=== PATIENT | male | born 1955 | race Caucasian/White ===

== ENCOUNTER 2018-06-30 08:53 | Outpatient (CLI) | payer BC, SELFPAY ==
[2018-06-30 09:19] LABS: Abs Immature Grans 0.01 k/cumm (0.0-0.09); Absolute Basophil Count 0.07 k/cumm (0.0-0.2); Absolute Eosinophil Count 0.11 k/cumm (0.0-0.7); Absolute Lymphocyte Count 1.55 k/cumm (1.2-3.4); Absolute Neutrophil Count 3.83 k/cumm (1.2-6.7); Basophils % 1.1; Eosinophils % 1.7; HCT 45.7 % (40.0-50.0); HGB 15.4 g/dL (13.5-17.5); Immature Grans % 0.2; Lymphocytes % 24.3; Mean Corp. HGB Concentration 33.7 g/dL (32.0-36.0); Mean Corpuscular Hemoglobin 32.4 pg (27.0-33.0); Mean Corpuscular Volume 96.2 fL (80-95); Mean Platelet Volume 10.9 fL (8.0-11.0); Monocytes % 12.6; Neutrophils % 60.1; Platelet Count 198 x1000/uL (130-400); RBC 4.75 m/cumm (4.50-6.00); RBC Distribution Width 14.9 % (11.8-14.1); White Blood Cell Count 6.37 k/cumm (4.4-10.8)
[2018-06-30 10:38] LABS: Anion Gap 7.3 mmol/L (3-11); BUN 15 mg/dL (7-18); CO2 28.7 mmol/L (21.0-32.0); CREATININE 1.06 mg/dL (0.70-1.30); Chloride 106 mmol/L (98-107); Cholesterol 150 mg/dL (50-200); Glucose 87 mg/dL (70-100); HDL Cholesterol 62 mg/dL (40-60); LDL CHOLESTEROL 81 mg/dL (<100); Potassium 4.7 mmol/L (3.5-5.1); Sodium 142 mmol/L (136-145); Triglyceride 41 mg/dL (30-150)
== END 2018-06-30 09:13 ==
PROVIDERS: PCP Nurse Practitioner Family; Visit Provider Nurse Practitioner Family
DX: E78.5 Hyperlipidemia, unspecified (principal); D50.9 Iron deficiency anemia, unspecified; N28.9 Disorder of kidney and ureter, unspecified
CPT/HCPCS: 36415; 80048; 80061; 83721; 85025

== ENCOUNTER 2018-10-02 00:16 | Outpatient (CLI) | payer OTHER, SELFPAY ==
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
== END 2018-10-02 00:36 ==
PROVIDERS: PCP Nurse Practitioner Family; Visit Provider Nurse Practitioner Family
DX: S22.20XD Unspecified fracture of sternum, subsequent encounter for fracture with routine healing (principal); J18.9 Pneumonia, unspecified organism
CPT/HCPCS: 71046

== ENCOUNTER 2018-10-19 11:56 | Outpatient (CLI) | payer BC, SELFPAY ==
--- NOTE | 2018-10-19 11:54 | DI.RAD_ITS ---
SYMPTOMS/DIAGNOSIS: F/U FX STERNUM: Two views were obtained. Comparison is 10/02/18. There has been no significant change in alignment of the fracture involving the proximal sternum.
== END 2018-10-19 12:16 ==
PROVIDERS: PCP Nurse Practitioner Family; Visit Provider Orthopaedic Surgery
DX: S22.20XD Unspecified fracture of sternum, subsequent encounter for fracture with routine healing (principal)
CPT/HCPCS: 71120

== ENCOUNTER 2020-05-29 07:10 | Outpatient (CLI) | payer BC, SELFPAY ==
[2020-05-29 08:11] LABS: Anion Gap 8.7 mmol/L (3-11); BUN 21 mg/dL (7-18); CO2 26.3 mmol/L (21.0-32.0); CREATININE 1.07 mg/dL (0.70-1.30); Calculated LDL 81 mg/dL (<100); Chloride 108 mmol/L (98-107); Cholesterol 157 mg/dL (<200); Glucose 87 mg/dL (74-106); HDL Cholesterol 66 mg/dL (40-60); Potassium 4.6 mmol/L (3.5-5.1); Sodium 143 mmol/L (136-145); Triglyceride 52 mg/dL (<150)
[2020-05-30 10:59] LABS: Lyme Ab w Rflx to Lyme Confirm Negative (Negative)
== END 2020-05-29 07:30 ==
PROVIDERS: PCP Nurse Practitioner Family; Visit Provider Nurse Practitioner Family
DX: Z13.1 Encounter for screening for diabetes mellitus (principal); W57.XXXA Bitten or stung by nonvenomous insect and other nonvenomous arthropods, initial encounter; S70.361A Insect bite (nonvenomous), right thigh, initial encounter
CPT/HCPCS: 36415; 80048; 80061; 86618

== ENCOUNTER 2021-07-24 01:51 | Outpatient (CLI) | payer MEDICARE, BC, SELFPAY ==
[2021-07-24 10:58] LABS: ALT 33 U/L (16-63); AST 29 U/L (15-37); Albumin 3.7 g/dL (3.4-5.0); Alkaline Phosphatase 95 U/L (46-116); Anion Gap 5.8 mmol/L (3-11); BUN 19 mg/dL (7-18); Bilirubin, Total 0.7 mg/dL (0.2-1.0); CO2 28.2 mmol/L (21.0-32.0); CREATININE 0.9 mg/dL (0.70-1.30); Calculated LDL 80 mg/dL (<100); Chloride 108 mmol/L (98-107); Cholesterol 159 mg/dL (<200); Glucose 89 mg/dL (74-106); HDL Cholesterol 69 mg/dL (40-60); Potassium 4.7 mmol/L (3.5-5.1); Sodium 142 mmol/L (136-145); Total Protein 6.7 g/dL (6.4-8.2); Triglyceride 51 mg/dL (<150)
== END 2021-07-24 01:52 | disposition home or self-care (01) ==
LOC: LBO 01:55
PROVIDERS: PCP Nurse Practitioner Family; Visit Provider Nurse Practitioner Family
DX: E78.5 Hyperlipidemia, unspecified (principal); Z13.1 Encounter for screening for diabetes mellitus
CPT/HCPCS: 36415; 80053; 80061

== ENCOUNTER 2022-08-11 03:28 | Outpatient (CLI) | payer MEDICARE, SELFPAY ==
[2022-08-11 09:09] LABS: Abs Immature Grans 0.02 10^3/uL (0.0-0.06); Absolute Basophil Count 0.09 10^3/uL (0.0-0.2); Absolute Eosinophil Count 0.18 10^3/uL (0.0-0.7); Absolute Lymphocyte Count 1.72 10^3/uL (1.2-3.4); Absolute Monocyte Count 0.98 10^3/uL (0.1-0.8); Absolute Neutrophil Count 4.48 10^3/uL (1.2-6.7); Basophils % 1.2; Eosinophils % 2.4; HCT 39.7 % (40.0-50.0); HGB 12.7 g/dL (13.5-17.5); Immature Grans % 0.3; MCH 28.2 pg (27.0-33.0); MCV 88 fL (80-95); MPV 9.9 fL (8.0-11.0); Monocytes % 13.1; Platelet Count 315 10^3/uL (130-400); RBC 4.51 10^6/uL (4.36-5.78); RDW 15.3 % (11.8-14.1); RDW-SD 49.9 fL; WBC 7.47 10^3/uL (4.4-10.8)
[2022-08-11 11:20] LABS: Anion Gap 7.5 mmol/L (3-11); BUN 24 mg/dL (7-18); CO2 26.5 mmol/L (21.0-32.0); Calcium 8.7 mg/dL (8.5-10.1); Calculated LDL 147 mg/dL (<100); Chloride 106 mmol/L (98-107); Cholesterol 221 mg/dL (<200); Estimated GFR 81.98 (mL/min/1.73m2); Glucose 87 mg/dL (74-106); HDL Cholesterol 60 mg/dL (40-60); Potassium 4.3 mmol/L (3.5-5.1); Sodium 140 mmol/L (136-145); Triglyceride 71 mg/dL (<150)
[2022-08-12 16:39] LABS: Ferritin 20 ng/mL (26-388); Folate 4.5 ng/mL (8.6-20.0); Vitamin B12 291 pg/mL (193-986)
== END 2022-08-11 03:29 | disposition home or self-care (01) ==
LOC: LBO 03:28
PROVIDERS: PCP Nurse Practitioner Family; Referring Provider Nurse Practitioner Family; Visit Provider Nurse Practitioner Family
DX: E78.5 Hyperlipidemia, unspecified (principal); Z13.1 Encounter for screening for diabetes mellitus; Z86.2 Personal history of diseases of the blood and blood-forming organs and certain disorders involving the immune mechanism
CPT/HCPCS: 36415; 80048; 80061; 82607; 82728; 82746; 85025

== ENCOUNTER 2022-10-13 02:30 | Outpatient (CLI) | payer MEDICARE, SELFPAY ==
[2022-10-13 09:11] LABS: Abs Immature Grans 0.04 10^3/uL (0.0-0.06); Absolute Basophil Count 0.04 10^3/uL (0.0-0.2); Absolute Eosinophil Count 0.18 10^3/uL (0.0-0.7); Absolute Lymphocyte Count 2.08 10^3/uL (1.2-3.4); Absolute Monocyte Count 1.01 10^3/uL (0.1-0.8); Absolute Neutrophil Count 4.84 10^3/uL (1.2-6.7); Basophils % 0.5; Eosinophils % 2.2; HGB 15.2 g/dL (13.5-17.5); Immature Grans % 0.5; Lymphocytes % 25.4; MCH 30.2 pg (27.0-33.0); MCV 92 fL (80-95); MPV 9.8 fL (8.0-11.0); Monocytes % 12.3; Neutrophils % 59.1; Platelet Count 316 10^3/uL (130-400); RBC 5.03 10^6/uL (4.36-5.78); RDW 17.1 % (11.8-14.1); RDW-SD 57.4 fL; WBC 8.19 10^3/uL (4.4-10.8)
[2022-10-13 10:30] LABS: Folate > 20.0 ng/mL (8.6-20.0)
[2022-10-13 10:34] LABS: Vitamin D 25 Total 26.2 ng/mL (30-100)
[2022-10-13 10:39] LABS: Ferritin 94 ng/mL (26-388); Vitamin B12 494 pg/mL (193-986)
== END 2022-10-13 02:31 | disposition home or self-care (01) ==
LOC: LBO 02:30
PROVIDERS: PCP Nurse Practitioner Family; Visit Provider Nurse Practitioner Family
DX: D64.9 Anemia, unspecified (principal); E55.9 Vitamin D deficiency, unspecified; E78.5 Hyperlipidemia, unspecified; Z79.899 Other long term (current) drug therapy
CPT/HCPCS: 36415; 82306; 82607; 82728; 82746; 85025

== ENCOUNTER → 2022-11-15 10:21 | Outpatient (BNVA) | payer MEDICARE, SELFPAY | PROVIDERS: PCP Nurse Practitioner Family; Referring Provider Nurse Practitioner Family; Visit Provider Student in an Organized Health Care Education/Training Program | DX: M70.42 Prepatellar bursitis, left knee (principal) | CPT/HCPCS: 20610; 99202 ==

== ENCOUNTER 2023-03-18 12:18 | Outpatient (CLI) | payer MEDICARE, SELFPAY ==
--- NOTE | 2023-03-18 12:00 | DI.RAD_ITS ---
Exam(s) XR CHEST 2V PA LATERAL EXAM: XR CHEST 2V PA LATERAL CLINICAL HISTORY: r/o PNA or other acute abnormality R50.9 FEVER R05.9 COUGH W57.XXXA TICK TECHNIQUE: 2D digital imaging was performed. COMPARISON: CR XR CHEST 2V PA LATERAL from 10/02/2018 CR XR sternum from 10/19/2018 FINDINGS: HEART: Normal size. Aorta: Not dilated. PULMONARY VASCULATURE: Normal. LUNGS: Clear. PLEURAL SPACE: No pleural effusion or pneumothorax. BONE:Unremarkable for age. IMPRESSION: No acute abnormality. DATA REPOSITORY: RADIATION DOSE DELIVERED:
== END 2023-03-18 12:38 ==
LOC: DI 06-14 12:19
PROVIDERS: PCP Nurse Practitioner Family; Visit Provider Nurse Practitioner Family
DX: R05.9 Cough, unspecified (principal); R50.9 Fever, unspecified; W57.XXXA Bitten or stung by nonvenomous insect and other nonvenomous arthropods, initial encounter
CPT/HCPCS: 71046

== ENCOUNTER 2023-03-18 12:30 | Outpatient (CLI) | payer MEDICARE, SELFPAY ==
[2023-03-18 12:37] LABS: Abs Immature Grans 0.13 10^3/uL (0.0-0.06); Absolute Basophil Count 0.04 10^3/uL (0.0-0.2); Absolute Lymphocyte Count 1.36 10^3/uL (1.2-3.4); Absolute Monocyte Count 1.43 10^3/uL (0.1-0.8); Absolute Neutrophil Count 7.93 10^3/uL (1.2-6.7); Basophils % 0.4; HCT 37.1 % (40.0-50.0); HGB 12.8 g/dL (13.5-17.5); Immature Grans % 1.2; Lymphocytes % 12.5; MCH 31.7 pg (27.0-33.0); MCHC 34.5 % (32.0-36.0); MCV 92 fL (80-95); MPV 10.4 fL (8.0-11.0); Monocytes % 13.1; Neutrophils % 72.8; Platelet Count 303 10^3/uL (130-400); RBC 4.04 10^6/uL (4.36-5.78); RDW 13.5 % (11.8-14.1); RDW-SD 45.8 fL; WBC 10.89 10^3/uL (4.4-10.8)
[2023-03-18 13:05] LABS: ALT 68 U/L (16-63); AST 58 U/L (15-37); Albumin 2.9 g/dL (3.4-5.0); Alkaline Phosphatase 189 U/L (46-116); Anion Gap 8.5 mmol/L (3-11); BUN 18 mg/dL (7-18); Bilirubin, Total 0.8 mg/dL (0.2-1.0); CO2 24.5 mmol/L (21.0-32.0); CREATININE 1.3 mg/dL (0.70-1.30); Calcium 8.6 mg/dL (8.5-10.1); Chloride 100 mmol/L (98-107); Estimated GFR 59.47 (mL/min/1.73m2); Glucose 139 mg/dL (74-106); Potassium 4.5 mmol/L (3.5-5.1); Sodium 133 mmol/L (136-145); Total Protein 7.4 g/dL (6.4-8.2)
[2023-03-21 10:09] LABS: Lyme Ab w Rflx to Lyme Confirm Negative (Negative)
[2023-03-21 22:11] LABS: B. miyamotoi PCR Negative (Negative); Babesia divergens/MO-1 Negative (Negative); Babesia duncani Negative (Negative); Babesia microti Negative (Negative); Ehrlichia chaffeensis Negative (Negative); Ehrlichia ewingii/canis Negative (Negative); Ehrlichia muris eauclairensis Negative (Negative)
[2023-03-22 09:06] LABS: Anaplasma phagocytophilum Positive (Negative)
== END 2023-03-18 12:31 | disposition home or self-care (01) ==
LOC: LBO 06-14 12:30
PROVIDERS: PCP Nurse Practitioner Family; Visit Provider Nurse Practitioner Family
DX: R05.9 Cough, unspecified (principal); R50.9 Fever, unspecified; W57.XXXA Bitten or stung by nonvenomous insect and other nonvenomous arthropods, initial encounter; A79.82 Anaplasmosis [A. phagocytophilum]
CPT/HCPCS: 36415; 80053; 87798; 85025; 86618

== ENCOUNTER 2023-08-10 03:38 | Outpatient (CLI) | payer MEDICARE, SELFPAY ==
[2023-08-10 12:18] LABS: Abs Immature Grans 0.02 10^3/uL (0.0-0.06); Absolute Eosinophil Count 0.21 10^3/uL (0.0-0.7); Absolute Lymphocyte Count 1.85 10^3/uL (1.2-3.4); Absolute Monocyte Count 1.07 10^3/uL (0.1-0.8); Absolute Neutrophil Count 4.47 10^3/uL (1.2-6.7); Basophils % 1.3; Eosinophils % 2.7; HCT 37.6 % (40.0-50.0); HGB 11.9 g/dL (13.5-17.5); Immature Grans % 0.3; MCH 28.1 pg (27.0-33.0); MCHC 31.6 % (32.0-36.0); MCV 89 fL (80-95); MPV 10.8 fL (8.0-11.0); Monocytes % 13.9; Neutrophils % 57.8; Platelet Count 346 10^3/uL (130-400); RBC 4.24 10^6/uL (4.36-5.78); RDW 14.8 % (11.8-14.1); RDW-SD 48.3 fL; WBC 7.72 10^3/uL (4.4-10.8)
[2023-08-10 13:01] LABS: Iron 30 ug/dL (65-175); Total Iron Binding Capacity 334 ug/dL (250-450); Transferrin Sat 9 % (20-55)
[2023-08-10 13:17] LABS: Vitamin D 25 Total 28.3 ng/mL (30-100)
[2023-08-10 13:20] LABS: Calculated LDL 95 mg/dL (<100); Cholesterol 168 mg/dL (<200); Ferritin 15 ng/mL (26-388); Folate 5.9 ng/mL (8.6-20.0); HDL Cholesterol 63 mg/dL (40-60); Triglyceride 52 mg/dL (<150); Vitamin B12 260 pg/mL (193-986)
== END 2023-08-10 03:39 | disposition home or self-care (01) ==
LOC: LOS 03:38
PROVIDERS: PCP Nurse Practitioner Family; Visit Provider Nurse Practitioner Family
DX: E55.9 Vitamin D deficiency, unspecified (principal); D64.9 Anemia, unspecified; E78.5 Hyperlipidemia, unspecified
CPT/HCPCS: 36415; 80061; 82306; 82607; 82728; 82746; 83540; 83550; 85025

== ENCOUNTER 2023-12-05 15:45 | Outpatient (CLI) | payer MEDICARE, SELFPAY ==
--- NOTE | 2023-12-05 10:00 | DI.RAD_ITS ---
Exam(s) XR KNEE RT 3V AP,LAT,ANABELLE EXAM: XR KNEE RT 3V AP,LAT,ANABELLE CLINICAL HISTORY: eval R knee pain/OA. TECHNIQUE: 2D digital imaging was performed of the right knee. Three views obtained. AP, lateral an d PA tunnel views were obtained. COMPARISON: CR RIGHT KNEE LIMITED 1 OR 2 VIEW from 10/22/2015 FINDINGS: BONES: No acute fracture is present. No bony destructive lesion is seen. JOINTS: There is marked narrowing of the medial femoral tibial joint. Osteophytes are seen in the me dial femoral tibial patellofemoral joint. There is a small joint effusion. SOFT TISSUE: Normal. IMPRESSION: Marked degenerative changes of the right knee. DATA REPOSITORY: RADIATION DOSE DELIVERED:
--- NOTE | 2023-12-05 10:00 | DI.RAD_ITS ---
Exam(s) XR HIP RT COMPLETE AP PELVIS EXAM: XR HIP RT COMPLETE AP PELVIS CLINICAL HISTORY: eval anteromedial right thigh/knee pain. TECHNIQUE: 2D digital imaging was performed of the right hip. Two images were obtained. AP pelvis a nd lateral right hip views were obtained. COMPARISON: No exams were available for comparison FINDINGS: BONES: No acute fracture is present. No bony destructive lesion is seen. JOINTS: No dislocation present. There is narrowing of the joint spaces bilaterally. Acetabular osteo phytes are also seen bilaterally. The visualized sacroiliac joints are unremarkable as is the symphy sis pubis. SOFT TISSUE: Surgical clips are seen inferior to the pelvis likely reflecting prior vasectomy. IMPRESSION: Mild degenerative changes of the hips bilaterally. DATA REPOSITORY: RADIATION DOSE DELIVERED:
== END 2023-12-05 15:46 | disposition home or self-care (01) ==
LOC: DIORS 15:45
PROVIDERS: PCP Nurse Practitioner; Referring Provider Nurse Practitioner
DX: M17.11 Unilateral primary osteoarthritis, right knee; M25.851 Other specified joint disorders, right hip; M25.852 Other specified joint disorders, left hip
CPT/HCPCS: 73562; 99215; 73502

== ENCOUNTER → 2024-01-03 08:38 | Outpatient (BNVA) | payer MEDICARE, SELFPAY | PROVIDERS: PCP Nurse Practitioner; Referring Provider Nurse Practitioner; Visit Provider Student in an Organized Health Care Education/Training Program | DX: M17.11 Unilateral primary osteoarthritis, right knee (principal) | CPT/HCPCS: 99214 ==

== ENCOUNTER 2024-07-03 10:21 | Outpatient (CLI) | payer MEDICARE, SELFPAY ==
--- NOTE | 2024-07-03 09:00 | DI.RAD_ITS ---
Exam(s) XR STANDING ALIGNMENT EXAM: XR STANDING ALIGNMENT CLINICAL HISTORY: PRE OP RIGHT UKA. TECHNIQUE: 2D digital imaging was performed. Standing AP views were performed from the pelvis throu gh the ankles. COMPARISON: CR XR KNEE RT 3V AP,LAT,ANABELLE from 12/05/2023 FINDINGS: BONES: No acute fracture is present. No bony destructive lesion is seen. Leg length discrepancy: JOINTS: Knees: Severe narrowing of the medial femoral tibial joint space of the right knee, with a rosy ne-on-bone appearance. This causes varus angulation. The left knee joint spaces are maintained. Ankles: Right ankle joint space is maintained. Mild narrowing of the medial tibiotalar joint on the left. The hip joints show mild degenerative changes.. SOFT TISSUE: Normal. IMPRESSION: Severe degenerative changes of the medial femoral tibial joint of the right knee. No significant leg length discrepancy. DATA REPOSITORY: RADIATION DOSE DELIVERED:
== END 2024-07-03 10:22 | disposition home or self-care (01) ==
LOC: DIORS 10:22
PROVIDERS: PCP Nurse Practitioner; Referring Provider Nurse Practitioner; Visit Provider Student in an Organized Health Care Education/Training Program
DX: M17.11 Unilateral primary osteoarthritis, right knee (principal)
CPT/HCPCS: 99214; 77073

== ENCOUNTER 2024-07-27 07:24 | Day surgery (SDC) | payer MEDICARE, SELFPAY ==
[2024-07-27] VITALS (23 sets, daily range): BP systolic 101–139; BP diastolic 47–74; PULSE 46–68; RESP 14–21; TEMP 36.1–37; O2SAT 92–98; BMI 25.9
--- NOTE | 2024-07-27 07:16 | ROE_ITS ---
Date of service: 07/27/24 Time of Service: 11:00 Operative Note Operative Note DATE OF PROCEDURE: 07/27/24 PRE-OP DIAGNOSIS: Right knee medial compartmental arthritis POST-OP DIAGNOSIS: same PROCEDURE: Right knee medial unicompartmental arthroplasty, CPT # 64133 The portfolio assistant was medically required as this procedure involves retraction, protection of neurovascular structures, and manipulation of multiple instruments and implants at the same time, which cannot be done without a skilled portfolio assistant. SURGEON: Carlos Soni [employer] SUPERVISOR: Renetta Colón ANESTHESIA TYPE: Local By Surgeon, General LMA/ETT and Primary Nerve Block Refer to Anesthesia Record ESTIMATED BLOOD LOSS: 200 TOURNIQUET TIME: 0 COMPLICATIONS: None Patient was transported to: PACU Patient's condition: stable Implants: DePuy Sigma HP partial knee size 3 metal-backed tibial tray, 8 mm tibial insert fixed bearing, size 4 femoral component Indications: Please see complete medical record for details. Findings: Isolated medial compartment arthritis Procedure Description: The patient was taken to the operating room and transferred to the operating room table. [Spinal] anesthesia was induced. All bony prominences were well- padded. Preoperative antibiotics and 1 g TXA were administered. A tourniquet was placed loosely over padding high on the patient's thigh. The knee and lower extremity were prepped and draped in the usual sterile fashion. The correct patient, procedure, and side of the procedure were all verified prior to incision. A slightly medial of midline longitudinal approach was used to the knee extending from the superior pole the patella to the distal aspect of the tibial tubercle. The quadriceps tendon, patella borders, and patellar tendon were exposed. A full-thickness arthrotomy was performed starting splitting the quadriceps tendon and leaving a sleeve of tissue on the medial aspect of the patella and taking care to progress along the medial margin the patellar tendon. The MCL was elevated off the proximal medial tibia. The tibial alignment jig was set in place on the anterior medial aspect of the tibia and carefully adjusted to achieve proper alignment in the coronal and sagittal planes. Reciprocating saw was used to create the vertical cut at the medial aspect of the medial tibial eminence taking care to protect the ACL ligament footprint. The transverse cut was then done using the microsagittal saw through the jig taking care to retract and protect the MCL. The bone piece and cut were inspected and found to be appropriate for patient anatomy. A box rasp was used to clean up the cut especially the L component. The 8 mm spacer block had good stability in flexion, but extension gap was 9 mm owing to the bone loss arthritis. The tibial trial spacer block was used to chris the rotational alignment and anterior extent of the femoral component. The spacer block was removed and the tibia was sized with the depth gauge. The distal femoral cutting block was inserted taking care to orient it appropriately. The 1 mm up guide was done to equalize the flexion and extension gaps. The cut was done using the saw through the guide. The posterior cutting block was then applied to the distal cut, ensured to be flush, rotation set, and it was pinned in place. The posterior cut was completed through the guide. The guide was removed, and the femur was sized with the femoral sizing blocks. The appropriate sized cutting jig was selected. Care was taken to ensure the block was flush with the resected distal and posterior femur bone surfaces. A curved gouge was used to cut the profile of the proximal tip of the femoral prosthesis, chris the extent of the anterior chamfer cut, and prevent trochlear cartilage delamination. The anterior cut was done using the osteotomes, the drill was used to drill the 2 peg holes, and the posterior chamfer cut was done through the jig with the saw. This last cutting block and bone cuts were rem ayad. The medial meniscus remnant was removed. The femoral component trial was placed on the distal femur and the 8 mm spacer block confirmed appropriate balancing in flexion, extension, and again about 2 mm of medial joint space opening in about 20 degrees of flexion. Tibial template was inserted and the size confirmed to be appropriate. The keel was used by hand to remove bone from the slot and the tibial peg drill was used in the peg hole. The pulse lavage was used to clean the bone surfaces. SmartSet medium viscosity cement was prepared. At the appropriate time during the early working phase, the cement was applied to the backside of the tibial and femoral components. Then, cement was carefully placed and pressurized into the proximal tibia taking care to only have minimal cement posteriorly. The tibial component was inserted at an angle and then impacted directing pressure from posterior to anterior to keep the flow of cement from posterior to anterior. Cement was then applied to the distal femur and the femoral component impacted. Excess cement was removed. The knee was brought into full extension and this position with axial load was maintained until the cement was completely hardened at 20 minutes. A combination R.E.C.K. (123 mg Ropivacaine, 0.25 mg Epinephrine, 0.04 mg Clonidine, and 15 mg Ketorolac) 50 ml injection was widely infiltrated about the knee. The wound was copiously irrigated with the pulse lavage and Surgiphor. Tibial tray copier operator was removed, and the final tibial insert was inserted and clicked into place. The knee was tested through range of motion found to be stable with equal balancing from full extension to flexion past 90 degrees and a couple millimeters of medial joint space opening in about 20 degrees of flexion. Appropriate hemostasis was achieved. The capsule was approximated using #1 Vicryl in a figure-of-8 interrupted fashion and then closed using Stratafix #1 PDS barbed suture in a running fashion. The superficial layers were irrigated. Subcutaneous tissue was closed using 2-0 Monocryl in a buried interrupted fashion. Skin was closed using 3-0 Monocryl in a buried subcuticular fashion. The skin incision was glued and then covered with a Mepilex Ag dressing. An Jer wrap was applied from the foot up to the thigh. The patient awoke from anesthesia without complication was transferred to the recovery room in stable condition.
--- NOTE | 2024-07-27 07:19 | W.PM.DSUDISC ---
Date of service: 07/27/24 Time of Service: 13:00 Discharge Plan Disposition Patient Disposition: Home Condition: Stable Discharge Details Attending Provider: Carlos Soni Primary Care Provider: Carlie Martinez Home Meds and New Rx's Prescriptions: New naproxen 250 mg tablet 250 mg PO BID PRNQty: 40 0RF Rx Instructions: take with a meal aspirin 81 mg tablet,delayed release (DR/EC) 81 mg PO BID 30 Days Qty: 60 0RF tramadol 50 mg tablet 50 mg PO Q8H PRN (Reason: severe pain) Qty: 9 0RF Continued cyanocobalamin (vitamin B-12) 1,000 mcg tablet 1,000 mcg PO DAILY Qty: 90 3RF cholecalciferol (vitamin D3) 25 mcg (1,000 unit) capsule 1,000 unit PO DAILY iron bis glycinat-vit C-FA-B12 28 mg iron-60mg -400 mcg-8 mcg capsule 1 cap PO DAILY pravastatin 20 mg tablet 20 mg PO QHS Qty: 90 3RF naproxen sodium [Aleve] 220 MG tablet 440 mg PO DAILY PRN Patient Comments: pt has not taken in a while 05/06/17 Rx Instructions: 05/21/15 pt takes b/c of R leg pain, RH Discharge Instructions Additional Instructions: Surgery: Right medial unicondylar knee replacement Activity: Weightbearing as tolerated. Recommend elevation to minimize swelling and discomfort. Walk as comfort allows. May use crutches or walker as needed for a few weeks. It is important to restore full knee extension as soon as possible. Gently increase knee flexion over the next few weeks. Do not rest with pillows behind knee to prevent knee from getting stuck bent. Encourage ankle pumps and wiggling toes to increase circulation. A physical therapy prescription will be sent electronically to begin in 2-3 weeks. Prescriptions: Aspirin 81 mg take 1 twice a day to prevent a blood clot 30 days, starting tomorrow Naproxen 250 mg take 1-2 every 12 hours with a meal as needed for moderate pain Tramadol 50 mg take 1 every 8 hours as needed for severe pain You may use [id number] Tylenol (acetaminophen) as needed for mild pain. These pain medications may be taken all at once or in different combinations as needed. Also, recommend Colace (docusate) as a stool softener as surgery and pain medicine cause constipation. You may try [id number]-[id number] diphenhydramine (Benadryl) 25-50 mg nightly as a sleep aid Dressings: Leave Band-Aid in place until follow-up. Keep clean and dry at all times. May remove Jer wrap tomorrow. May re-wrap with Jer wrap to help control swelling as needed. Follow-up: 10-[address] Soni You may take off the leg compression Jer wrap and stockings tomorrow at home. You may also leave them on a few days longer if you have a history of leg swelling or edema. Let us know right away if you develop any redness, drainage, fevers, chest pain, or trouble breathing. Do not drink alcohol or drive for at least 24 hours after anesthesia. Please call the office during business hours with any questions or concerns. Discharge Orders Discharge Orders: Discharge Order (Routine); Ordered 07/27/24 Ordered By: Renetta Colón DS: Diagnosis Discharge Diagnosis (1) Arthritis of right knee: Status: Acute
[2024-07-27] MEDS: Lactated Ringers 1,000 ML 30 ML IV (08:20)
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
[2024-07-27] MEDS: Gabapentin 300 MG CAP PO (08:30)
[2024-07-27] MEDS: Acetaminophen 500 MG TAB 1000 MG PO (08:31)
[2024-07-27] MEDS: Celecoxib 200 MG CAP 400 MG PO (08:31)
--- NOTE | 2024-07-27 09:52 | W.ANESNERVE ---
Nerve Block Single Injection Procedure Date and Time Date Performed: 07/27/24 Procedure Start: 09:34 Location Where Procedure Performed Procedure Location: Day Surgery Unit Reason Performed: Postoperative Analgesia Requesting Provider: Carlos Soni Timeout Performed Timeout Performed: Yes Monitoring Used ECG, Blood Pressure, SpO2 and See EMR for corresponding vital signs Sterility Sterility: Hand Hygiene, Surgical Cap, Surgical Mask, Sterile Gloves, Sterile Drape/Sheet and Chlorhexidine Sedation Given During Procedure Sedation Given (Indicate Dose Given): No Sedation given Patient Mental Status Patient Mental Status: Awake Nerve Block 1st Nerve Block: Laterality: Right Block Type: Adductor Canal Ultrasound Image Saved?: Yes Needle / Catheter Used: 100mm SonoPlex II Local Anesthetic Bolus (Indicate Dose Given): Lidocaine used for local infiltration of skin, Injected in 3-5ml increments after negative blood aspiration, Bupivacaine 0.25% Dose:: 10 ml and Exparel Dose:: 10 ml Additives (Indicate Dose Given): None Ultrasound: Sterile probe cover and gel used Nerve Stimulator: Supplement to Ultrasound use and No twitch or parasthesia noted < 0.5 mA Paresthesia: None Procedure Tolerated: No Complications and Patient tolerated well Procedure Outcome: Successful Performed By: Marlen Lutz
[2024-07-27] MEDS: ceFAZolin 2 GM/50 ML BAG IVPB (10:34)
[2024-07-27] MEDS: TRANEXAMIC ACID/SOD. CHL. 1,000 MG/100 ML BAG 600 MG IVPB (10:42)
[2024-07-27] MEDS: Bupivacaine 0.25% Pres-Free W/EPI 30 ML VIAL (11:28)
--- NOTE | 2024-07-27 13:30 | DI.RAD_ITS ---
Exam(s) XR KNEE RT 2V AP,LAT EXAM: XR KNEE RT 2V AP,LAT INDICATION: knee arthritis. COMPARISON: No exams were available for comparison TECHNIQUE: 2D digital imaging was performed. Two views. Portable FINDINGS: The medial femoral tibial joint space prosthesis has been placed. The alignment appears satisfactor y. There is residual postsurgical air in the soft tissue. An old proximal fibular fractures again n oted. DATA REPOSITORY: RADIATION DOSE DELIVERED:
[2024-07-27] MEDS: ceFAZolin 1 GM/50 ML BAG IVPB (14:42)
--- NOTE | 2024-07-27 15:11 | W.ANESPOSTOP ---
Postoperative Evaluation Date, Time and Location Date Performed: 07/27/24 Time Performed: 15:11 Patient Location: Day Surgery Unit Vital Signs Most Recent Imported Vital Signs: Most Recent Vital Signs Temp Pulse Resp BP Pulse Ox 36.9 C 60 14 108/57 L 92 07/27/24 14:55 07/27/24 14:55 07/27/24 14:55 07/27/24 14:55 07/27/24 14:55 Pain Score Most Recent Pain Score: Most Recent Pain Score Pain Level 1 07/27/24 14:57 Assessment Mental Status: Awake (Alert & Oriented to Patient Baseline) Airway and Respiratory Function: Patent airway with normal (patient baseline) respiratory exam Cardiovascular Function: Hemodynamically Stable Hydration Status: Adequately Hydrated Nausea & Vomiting: No Nausea or Vomiting Pain: Pain is tolerable per patient Peripheral Nerve Block: Regional nerve block not resolved at time of post operative discharge
== END 2024-07-27 16:22 | disposition home or self-care (01) ==
PROVIDERS: PCP Nurse Practitioner; Visit Provider Student in an Organized Health Care Education/Training Program
PROC: (CPT 27446; principal; 2024-07-27 08:00)
DX: M17.11 Unilateral primary osteoarthritis, right knee; D50.9 Iron deficiency anemia, unspecified; E78.5 Hyperlipidemia, unspecified; E55.9 Vitamin D deficiency, unspecified; G89.18 Other acute postprocedural pain
CPT/HCPCS: 27446; 64447; 76942; 73560; C1776; C9290; J0665; J0690; J1100; J2003; J2405; J2704

== ENCOUNTER 2024-08-07 15:30 | Outpatient (CLI) | payer MEDICARE, SELFPAY ==
--- NOTE | 2024-08-07 09:45 | DI.RAD_ITS ---
Exam(s) XR KNEE RT 2V AP,LAT EXAM: XR KNEE RT 2V AP,LAT CLINICAL HISTORY: F/U RIGHT UKA. TECHNIQUE: 2D digital imaging was performed. Two images were obtained. AP and lateral views were ob tained. COMPARISON: CR XR KNEE RT 2V AP,LAT from 07/27/2024 FINDINGS: BONES: There are stable post operative changes of a partial right knee replacement present. No fract ure or dislocation. JOINTS: The orthopedic hardware is in good position. No evidence of hardware loosening. There are d egenerative changes seen in the knee characterized by joint space narrowing and osteophytes in the la teral femoral tibial patellofemoral joints. There is a small joint effusion. SOFT TISSUE: Normal. IMPRESSION: Stable partial right knee replacement. DATA REPOSITORY: RADIATION DOSE DELIVERED:
== END 2024-08-07 15:31 | disposition home or self-care (01) ==
LOC: DIORS 15:30
PROVIDERS: PCP Nurse Practitioner; Visit Provider Student in an Organized Health Care Education/Training Program
DX: Z47.1 Aftercare following joint replacement surgery (principal); Z96.651 Presence of right artificial knee joint
CPT/HCPCS: 99024; 73560

== ENCOUNTER 2024-09-18 15:26 | Outpatient (CLI) | payer MEDICARE, SELFPAY ==
--- NOTE | 2024-09-18 09:30 | DI.RAD_ITS ---
Exam(s) XR KNEE RT 2V AP,LAT EXAM: XR KNEE RT 2V AP,LAT INDICATION: F/U RIGHT UKA. COMPARISON: CR XR KNEE RT 2V AP,LAT from 08/07/2024 TECHNIQUE: 2D digital imaging was performed. Two views. FINDINGS: Stable alignment of medial femoral tibial joint space prosthesis. No abnormal surrounding bony lucen cies. A joint effusion anterior soft tissue swelling remain present. DATA REPOSITORY: RADIATION DOSE DELIVERED:
== END 2024-09-18 15:27 | disposition home or self-care (01) ==
LOC: DIORS 15:26
PROVIDERS: PCP Nurse Practitioner; Visit Provider Student in an Organized Health Care Education/Training Program
DX: Z47.1 Aftercare following joint replacement surgery (principal); Z96.651 Presence of right artificial knee joint
CPT/HCPCS: 99024; 73560

== ENCOUNTER 2024-11-08 08:42 | Outpatient (CLI) | payer MEDICARE, SELFPAY ==
[2024-11-08 08:56] LABS: Abs Immature Grans 0.02 10^3/uL (0.0-0.06); Absolute Basophil Count 0.07 10^3/uL (0.0-0.2); Absolute Eosinophil Count 0.23 10^3/uL (0.0-0.7); Absolute Monocyte Count 0.92 10^3/uL (0.1-0.8); Absolute Neutrophil Count 3.53 10^3/uL (1.2-6.7); Basophils % 1.1 %; Eosinophils % 3.6 %; HCT 40.5 % (40.0-50.0); HGB 13.2 g/dL (13.5-17.5); Immature Grans % 0.3 %; Lymphocytes % 26.3 %; MCH 32.6 pg (27.0-33.0); MCHC 32.6 % (32.0-36.0); MCV 100 fL (80-95); MPV 9.8 fL (8.0-11.0); Monocytes % 14.2 %; Neutrophils % 54.5 %; Platelet Count 296 10^3/uL (130-400); RBC 4.05 10^6/uL (4.36-5.78); RDW-SD 48.2 fL; WBC 6.47 10^3/uL (4.4-10.8)
[2024-11-08 09:09] LABS: Hemoglobin A1C 4.9 % (<5.7)
[2024-11-08 09:35] LABS: ALT 20 U/L (16-63); AST 30 U/L (15-37); Albumin 3.7 g/dL (3.4-5.0); Alkaline Phosphatase 96 U/L (46-116); Anion Gap 5.8 mmol/L (3-11); BUN 24 mg/dL (7-18); Bilirubin, Total 0.43 mg/dL (0.2-1.0); CO2 29.2 mmol/L (21.0-32.0); CREATININE 1.1 mg/dL (0.70-1.30); Calcium 9.4 mg/dL (8.5-10.1); Calculated LDL 95 mg/dL (<100); Chloride 109 mmol/L (98-107); Cholesterol 170 mg/dL (<200); Estimated GFR 72.22 (mL/min/1.73m2); Ferritin 31 ng/mL (26-388); Glucose 98 mg/dL (74-106); HDL Cholesterol 59 mg/dL (40-60); Potassium 4.7 mmol/L (3.5-5.1); Sodium 144 mmol/L (136-145); Total Protein 7.2 g/dL (6.4-8.2); Triglyceride 84 mg/dL (<150); Vitamin B12 394 pg/mL (193-986); Vitamin D 25 Total 23.4 ng/mL (30-100)
== END 2024-11-08 08:43 | disposition home or self-care (01) ==
LOC: LBO 08:43
PROVIDERS: PCP Nurse Practitioner; Visit Provider Nurse Practitioner
DX: R73.01 Impaired fasting glucose (principal); D64.89 Other specified anemias; E78.5 Hyperlipidemia, unspecified; E55.9 Vitamin D deficiency, unspecified; D50.9 Iron deficiency anemia, unspecified
CPT/HCPCS: 36415; 80053; 80061; 82306; 82607; 82728; 83036; 85025

== ENCOUNTER 2024-11-20 14:59 | Outpatient (CLI) | payer MEDICARE, SELFPAY ==
--- NOTE | 2024-11-20 10:15 | DI.RAD_ITS ---
Exam(s) XR KNEE RT 2V AP,LAT EXAM: XR KNEE RT 2V AP,LAT CLINICAL HISTORY: F/U RIGHT [facility]. TECHNIQUE: 2D digital imaging was performed. Three views. COMPARISON: CR XR KNEE RT 2V AP,LAT from 09/18/2024 FINDINGS: BONES: No acute fracture is present. Old proximal fibular fracture. No bony destructive lesion is s een. 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 JOINTS: The knee is normally aligned. A small joint effusion is seen. SOFT TISSUE: Mild anterior soft tissue swelling. 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 DATA REPOSITORY: RADIATION DOSE DELIVERED:
== END 2024-11-20 15:00 | disposition home or self-care (01) ==
LOC: DIORS 15:00
PROVIDERS: PCP Nurse Practitioner; Visit Provider Student in an Organized Health Care Education/Training Program
DX: M17.11 Unilateral primary osteoarthritis, right knee (principal)
CPT/HCPCS: 99213; 73560

== ENCOUNTER 2025-07-30 10:21 | Outpatient (CLI) | payer MEDICARE, SELFPAY ==
--- NOTE | 2025-07-30 09:51 | DI.RAD_ITS ---
Exam(s) XR KNEE RT 2V AP,LAT EXAM: XR KNEE RT 2V AP,LAT CLINICAL HISTORY: F/U RIGHT [facility]. TECHNIQUE: 2D digital imaging was performed. Three views. COMPARISON: CR XR KNEE RT 2V AP,LAT from 11/20/2024 FINDINGS: BONES: No acute fracture is present. Old proximal fibular fracture. No bony destructive lesion is seen. 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 Lateral joint space is maintained. Spurring at the articular aspect of the patella. A tiny joint effusion is seen. SOFT TISSUE: Anterior soft tissue swelling IMPRESSION: Stable appearance of medial joint space prosthesis. DATA REPOSITORY: RADIATION DOSE DELIVERED:
== END 2025-07-30 10:22 | disposition home or self-care (01) ==
LOC: DIORS 10:21
PROVIDERS: PCP Nurse Practitioner; Referring Provider Nurse Practitioner; Visit Provider Student in an Organized Health Care Education/Training Program
DX: Z47.89 Encounter for other orthopedic aftercare (principal); M17.11 Unilateral primary osteoarthritis, right knee
CPT/HCPCS: 99213; 73560